=== PATIENT | male | born 1980 | race Two or more races ===

== ENCOUNTER 2024-11-05 10:30 | Emergency (ER) | payer OTHER ==
[~2024-11-05] VITALS: Ht 175.3 cm; Wt 72.6 kg
[2024-11-05] MEDS ORDERED: ELVITEG/COB/EMTRI/TENOFO DISOP 1 UDTAB TABLET PO STA (10:54)
[2024-11-05] MEDS ORDERED: SYNTHROID112 MCG PO (10:56)
[2024-11-05] MEDS ORDERED: OXYCONTIN10 M1 PO (10:56)
[2024-11-05] MEDS ORDERED: PREGABALIN75 MG PO (10:57)
[2024-11-05] MEDS ORDERED: FEXMID7.5 MG (10:57)
[2024-11-05] MEDS ORDERED: PRAVASTATIN SOD40 MG PO (10:58)
[2024-11-05] MEDS ORDERED: EFUDEX40 GM (10:58)
[2024-11-05] MEDS ORDERED: BENZONATATE150 MG (10:58)
[2024-11-05] MEDS ORDERED: ZYRTEC10 M3 PO (10:58)
[2024-11-05] MEDS ORDERED: ZOFRAN8 MG (10:58)
[2024-11-05] MEDS ORDERED: MELOXICAM7.5 MG (10:59)
[2024-11-05] MEDS ORDERED: ELVITEG/COB/EMTRI/TENOFO DISOP 1 UDTAB TABLET PO ONE (11:02)
== END 2024-11-05 11:28 | disposition home or self-care (01) ==
LOC: ER 10:30
DX: S61.248A Puncture wound with foreign body of other finger without damage to nail, initial encounter (principal); W26.8XXA Contact with other sharp object(s), not elsewhere classified, initial encounter; Y93.89 Activity, other specified; Y92.89 Other specified places as the place of occurrence of the external cause; Z88.0 Allergy status to penicillin